=== PATIENT | male | born 1990 | race Caucasian/White ===

== ENCOUNTER 2016-10-28 08:47 | Day surgery (SDC) | payer MEDICAID ==
[2016-10-28] MEDS ORDERED: LACTATED RINGERS 1,000 ML IV ONE (09:32)
[2016-10-28] MEDS ORDERED: MIDAZOLAM 2 MG/2 ML VIAL IVP ONE (10:21)
[2016-10-28] MEDS ORDERED: fentaNYL 250 MCG/5 ML VIAL IVP ONE (10:21)
== END 2016-10-28 08:48 | disposition home or self-care (01) ==
PROC: 0DB68ZX Excision of Stomach, Via Natural or Artificial Opening Endoscopic, Diagnostic (ICD-10-PCS; 2016-10-28)
PROC: 0DB38ZX Excision of Lower Esophagus, Via Natural or Artificial Opening Endoscopic, Diagnostic (ICD-10-PCS; principal; 2016-10-28 10:15)
DX: R13.10 Dysphagia, unspecified (principal); K21.9 Gastro-esophageal reflux disease without esophagitis; K44.9 Diaphragmatic hernia without obstruction or gangrene; K20.9 Esophagitis, unspecified; Z87.891 Personal history of nicotine dependence
CPT/HCPCS: 43239; J7120

== ENCOUNTER 2016-11-09 13:07 | Outpatient (CLI) | payer MEDICAID | END 2016-11-09 13:08 | disposition home or self-care (01) | DX: R13.10 Dysphagia, unspecified (principal) ==

== ENCOUNTER 2017-05-24 05:04 | Emergency (ER) | payer MEDICAID ==
[2017-05-24 05:13] VITALS: BP 126/81
--- NOTE | 2017-05-24 05:17 | ED Physician Documentation ---
PD HPI HEENT - Stated complaint Stated Complaint: HEADACHE,TOOTH PAIN - Chief complaint Chief Complaint: General - History obtained from History obtained from: Patient - History of Present Illness Timing - onset: Last night Timing - duration: Hours Timing - details: Gradual onset, Constant, Waxing and waning Pain level now: 8 Location: Tooth Improves: Nothing Worsens: Other (palpation) Similar symptoms before: Diagnosis (similar to (albeit milder than) dental abscess he had few years ago) Recently seen: Not recently seen - Additional information Additional information: c/o increasing pain associated with left upper third molar since last night Review of Systems Constitutional: denies: Fever Throat: reports: Dental pain / toothache PD PAST MEDICAL HISTORY - Past Medical History Past Medical History: Yes Cardiovascular: None Respiratory: None Neuro: None Endocrine/Autoimmune: None GI: None : None HEENT: None Psych: Anxiety Musculoskeletal: None Derm: None - Past Surgical History Past Surgical History: No - Present Medications Home Medications: Ambulatory Orders Medication Instructions Recorded Confirmed Citalopram [CeleXA] 10 mg ORAL DAILY 10/28/16 10/28/16 Clindamycin HCl 300 mg PO Q6HR 7 Days 05/24/17 - Allergies Allergies/Adverse Reactions: Allergies Allergy/AdvReac Type Severity Reaction Status Date / Time No Known Drug Allergies Allergy Verified 05/24/17 05:13 - Social History Does the pt smoke?: No Smoking Status: Never smoker Does the pt drink ETOH?: Yes Does the pt have substance abuse?: No - Immunizations Immunizations are current?: Yes - POLST Patient has POLST: No PD ED PE NORMAL - Vitals Vital signs reviewed: Yes - General General: Alert and oriented X 3, No acute distress, Well developed/nourished PD ED PE EXPANDED - HEENT HEENT Visual: 1 - tenderness (left third maxillary molar is worn to gum line, tender to palpation; no edema or discharge, no fluctuance) Results - Vitals Vitals: Vital Signs - 24 hr 05/24/17 05:11 Temperature 36.9 C Heart Rate 65 Respiratory 17 Rate Blood Pressure 126/81 H O2 Saturation 98 Oxygen O2 Source Room air PD MEDICAL DECISION MAKING - ED course Complexity details: considered differential, d/w patient Departure - Departure Disposition: 01 Home, Self Care Clinical Impression: Pain, dental Condition: Good Instructions: ED Tooth Pain Prescriptions: Clindamycin HCl 300 mg PO Q6HR 7 Days Comments: Follow up with dentistry.
[2017-05-24] MEDS ORDERED: CLINDAMYCIN 150 MG CAPSULE PO STA (05:30)
[2017-05-24] MEDS ORDERED: HYDROcod/ACET 5/325 Prepack 6 PO STA (05:30)
[2017-05-24] MEDS ORDERED: CLINDAMYCIN 150 MG CAPSULE PO ONE (05:37)
[2017-05-24] MEDS ORDERED: IBUPROFEN 600 MG TABLET PO STA (05:37)
[2017-05-24] MEDS ORDERED: HYDROcod/ACET 5/325 Prepack 6 PO ONE (05:37)
[2017-05-24] MEDS ORDERED: IBUPROFEN 600 MG TABLET PO ONE (05:44)
== END 2017-05-24 05:45 | disposition home or self-care (01) ==
LOC: ED 05:04
DX: K08.89 Other specified disorders of teeth and supporting structures (principal)
CPT/HCPCS: 99283; A9270

== ENCOUNTER 2018-04-02 14:01 | Emergency (ER) | payer SELFPAY ==
[2018-04-02 14:09] VITALS: BP 142/99
[2018-04-02] MEDS ORDERED: DEXAMETHASONE 10 MG/ML VIAL PO STA (14:16)
[2018-04-02] MEDS ORDERED: AMOXICILLIN 250 MG CAPSULE PO STA (14:16)
--- NOTE | 2018-04-02 14:19 | ED Physician Documentation ---
History of Present Illness - Stated complaint Stated Complaint: TOOTH PX - Chief complaint Chief Complaint: Heent - Additonal information Additional information: 27 male with dental decay lower R thrid molar was already cracked and has crumbles more and is not infected swollen and painful no fever Review of Systems Constitutional: denies: Fever Throat: reports: Dental pain / toothache Immunocompromised: denies: Immunocompromised PD PAST MEDICAL HISTORY - Past Medical History Past Medical History: Yes Cardiovascular: None Respiratory: None Endocrine/Autoimmune: None GI: None : None HEENT: None Psych: Anxiety Musculoskeletal: None Derm: None - Past Surgical History Past Surgical History: No - Present Medications Home Medications: Ambulatory Orders Medication Instructions Recorded Confirmed Amoxicillin 500 mg PO Q8H #30 capsule 04/02/18 - Allergies Allergies/Adverse Reactions: Allergies Allergy/AdvReac Type Severity Reaction Status Date / Time No Known Drug Allergies Allergy Verified 04/02/18 14:17 - Social History Does the pt smoke?: No Smoking Status: Never smoker Does the pt drink ETOH?: Yes Does the pt have substance abuse?: No - Immunizations Immunizations are current?: Yes - POLST Patient has POLST: No PD ED PE NORMAL - Vitals Vital signs reviewed: Yes - General General: Alert and oriented X 3 - HEENT HEENT: Ears normal, Moist mucous membranes. No: Dentition benign (mild decay but lower R 3rd molar is comletely decayed and there is lizz shell of enamel left at the gumline, TTP, no visible asbecss to drain, no trismus, some swelling and small adenopathy along line R madible but no sublingual or neck swelling) - Neck Neck: Supple, no meningeal sign - Cardiac Cardiac: RRR, No murmur - Respiratory Respiratory: No respiratory distress, Clear bilaterally Results - Vitals Vitals: Vital Signs - 24 hr 04/02/18 14:04 Temperature 36.4 C L Heart Rate 74 Respiratory 16 Rate Blood Pressure 142/99 H O2 Saturation 98 Oxygen O2 Source Room air PD MEDICAL DECISION MAKING - Sepsis Event Vital Signs: Vital Signs - 24 hr 04/02/18 14:04 Temperature 36.4 C L Heart Rate 74 Respiratory 16 Rate Blood Pressure 142/99 H O2 Saturation 98 Oxygen O2 Source Room air Departure - Departure Disposition: 01 Home, Self Care Clinical Impression: Dental abscess Condition: Good Instructions: ED Abscess Dental Prescriptions: Amoxicillin 500 mg PO Q8H #30 capsule Comments: The steroid will help decrease the swelling Take the antibiotic as prescribed Motrin and tylenol for the pain Follow up with your dentist tomorrow Return if the swelling worsens or spreads under your jaw or down your neck as we discussed
== END 2018-04-02 14:30 | disposition home or self-care (01) ==
LOC: ED 14:01
DX: K04.7 Periapical abscess without sinus (principal)
CPT/HCPCS: 99283; A9270